=== PATIENT | male | born 1995 | race African-American/Black ===

== ENCOUNTER 2017-08-17 11:48 | Emergency (ER) | payer SELFPAY ==
--- NOTE | 2017-08-17 12:43 | EDM.PDOC ---
ED HPI GENERAL MEDICAL PROBLEM - General Stated Complaint: vomiting Time Seen by Provider: 08/17/17 12:28 Source of Information: Reports: Patient History Limitations: Reports: No Limitations - History of Present Illness INITIAL COMMENTS - FREE TEXT/NARRATIVE: Patient is a 21-year-old male presents ED stating he had 3 episodes of emesis yesterday. Attempted to go to work but was sent home with instructions to obtain a return to work note. Patient states the nausea and vomiting has subsided. He's been able to drink and eat today with no issues. He has no diarrhea, fever, abdominal pain, dysuria, rash, sore throat, sinus congestion, or any additional complaints. Unclear the cause of the recent complaint. There was no ingestion of battery questionable food or recent sick exposures. Patient states he feels 100% better today and is able to return to work. He has no past medical history and currently taking no medications. No surgical history as well. Denies any alcohol use, smoking hx, and or recreational drug history. lower mid abdomen Pain Score (Numeric/FACES): 2 - Related Data Allergies Allergy/AdvReac Type Severity Reaction Status Date / Time No Known Allergies Allergy Verified 08/17/17 11:58 Home Meds: Home Meds . [No Known Home Meds] 08/17/17 [History] Past Medical History - Past Health History Medical/Surgical History: Denies Medical/Surgical History Social & Family History - Family History Family Medical History: Noncontributory - Tobacco Use Smoking Status *Q: Never Smoker - Caffeine Use Caffeine Use: Reports: Soda - Recreational Drug Use Recreational Drug Use: No ED ROS GENERAL - Review of Systems Review Of Systems: ROS reveals no pertinent complaints other than HPI. ED EXAM, GI/ABD - Physical Exam Exam: See Below Exam Limited By: No Limitations General Appearance: Alert, WD/WN, No Apparent Distress Ears: Hearing Grossly Normal Nose: Normal Inspection Throat/Mouth: Normal Voice, No Airway Compromise Neck: Normal Inspection, Supple Respiratory/Chest: No Respiratory Distress, Lungs Clear, Normal Breath Sounds, No Accessory Muscle Use Cardiovascular: Normal Peripheral Pulses, Regular Rate, Rhythm GI/Abdominal Exam: Normal Bowel Sounds, Soft, Non-Tender, No Organomegaly, No Distention (Male) Exam: Deferred (No complaints) Rectal (Males) Exam: Deferred (No complaints) Back Exam: Normal Inspection. No: CVA Tenderness (L), CVA Tenderness (R) Extremities: Normal Inspection, Normal Range of Motion, Non-Tender Neurological: Alert, Oriented, CN II-XII Intact, Normal Cognition, No Motor/ Sensory Deficits Psychiatric: Normal Affect, Normal Mood Skin Exam: Warm, Dry, Intact, Normal Color, No Rash Course - Vital Signs Last Recorded V/S: Last Vital Signs Temp 97.8 F 08/17/17 11:50 Pulse 52 L 08/17/17 11:50 Resp 18 08/17/17 11:50 BP 135/80 08/17/17 11:50 Pulse Ox 99 08/17/17 11:50 - Re-Assessments/Exams Free Text/Narrative Re-Assessment/Exam: Patient requesting a return to work note. Patient has no complaints as we speak. States the n/v and abdominal cramping has resolved. Patient has eaten and drank with further issues. No testing required. Discharge instructions as documented. Departure - Departure Time of Disposition: 12:40 Disposition: Home, Self-Care 01 Condition: Good Clinical Impression: Nausea and vomiting in adult patient, Abdominal cramping - Discharge Information Referrals: PCP,None [Primary Care Provider] - Forms: ED Return to Work/School Form Additional Instructions: May return to work tomorrow since all symptoms have resolved. Follow-up with PCP as needed to establish medical care and for further evaluation. Return to the ED for any new or worsening symptoms.
== END 2017-08-17 12:48 | disposition home or self-care (01) ==
LOC: JD.ED 11:48
DX: R11.2 Nausea with vomiting, unspecified (principal); R10.30 Lower abdominal pain, unspecified
CPT/HCPCS: 99284